=== PATIENT | male | born 1935 | race Caucasian/White ===

== ENCOUNTER 2021-08-09 22:04 | Inpatient (IN) | payer OTHER ==
[2021-08-09 22:14] VITALS: BMI 27.7
[2021-08-09 23:25] LABS: HEMATOCRIT 39.1 % (35.4-49); HEMOGLOBIN 12.9 GM/dl (11.7-16.9); MCH 30.4 pg (25.7-33.7); MCHC 33.1 g/dl (32.0-35.9); MEAN CELL VOLUME 91.8 fl (80-96); MEAN PLT VOLUME 10.3 fl (7.5-11.1); PLATELET COUNT 208 10^3/uL (134-434); RBC 4.26 M/mm3 (4.00-5.60); RDW 14.5 % (11.9-15.9); WHITE BLOOD COUNT 9.5 K/mm3 (4.0-10.8)
[2021-08-09 23:29] LABS: ALBUMIN 3.7 g/dl (3.4-5.0); BILIRUBIN,TOTAL 0.8 mg/dl (0.2-1); CREATININE 1.3 mg/dl (0.55-1.3); TOT PROT 6.9 g/dl (6.4-8.2)
[2021-08-09 23:42] LABS: PLATELET ESTIMATE ADEQUATE
[2021-08-09 23:51] LABS: CALCIUM 9.1 mg/dl (8.5-10)
[2021-08-10] MEDS ORDERED: SODIUM CHLORIDE 1,000 ML IV SCH (05:30)
[2021-08-10 08:52] LABS: BASO % 1.2 % (0-2.0); EOS % 1.7 % (0-4.5); HEMATOCRIT 37.2 % (35.4-49); HEMOGLOBIN 12.6 GM/dl (11.7-16.9); LYMPH % 23.4 % (8-40); MCH 30.7 pg (25.7-33.7); MCHC 33.9 g/dl (32.0-35.9); MEAN CELL VOLUME 90.7 fl (80-96); MEAN PLT VOLUME 9.7 fl (7.5-11.1); MONO % 8.2 % (3.8-10.2); NEUT % 65.5 % (42.8-82.8); PLATELET COUNT 202 10^3/uL (134-434); WHITE BLOOD COUNT 10.8 K/mm3 (4.0-10.8)
[2021-08-10 09:04] LABS: ALBUMIN 3.5 g/dl (3.4-5.0); BILIRUBIN,TOTAL 0.9 mg/dl (0.2-1); CALCIUM 8.9 mg/dl (8.5-10); CREATININE 1.1 mg/dl (0.55-1.3); MAGNESIUM 2.1 mg/dL (1.8-2.4); PHOSPHOROUS 3.3 mg/dl (2.5-4.9); TOT PROT 6.4 g/dl (6.4-8.2)
[2021-08-10] MEDS: LOSARTAN POTASSIUM 25 MG TABLET PO SCH (09:27)
[2021-08-10] MEDS: ASPIRIN COATED 81 MG TABLET.EC PO SCH (09:27)
[2021-08-10] MEDS: TAMSULOSIN HCL 0.4 MG CAP PO SCH ×3 (10:31→21:03)
[2021-08-10] MEDS: ENOXAPARIN NA (PORCINE) 40 MG/0.4 ML DISP.SYRIN SQ SCH (13:30)
[2021-08-10] MEDS: LATANOPROST 0.005% OPHTH SOLN 2.5ML BOTTLE OU SCH (21:03)
[2021-08-10] MEDS: ROSUVASTATIN CA 10 MG TABLET (FP) PO SCH (21:03)
[2021-08-11 08:11] LABS: MEAN CELL VOLUME 91.1 fl (80-96); WHITE BLOOD COUNT 8.7 K/mm3 (4.0-10.8)
[2021-08-11 08:18] LABS: ALBUMIN 3.1 g/dl (3.4-5.0); BILIRUBIN,TOTAL 0.7 mg/dl (0.2-1); CALCIUM 8.9 mg/dl (8.5-10); CREATININE 1.3 mg/dl (0.55-1.3); MAGNESIUM 1.9 mg/dL (1.8-2.4); PHOSPHOROUS 2.9 mg/dl (2.5-4.9); TOT PROT 5.8 g/dl (6.4-8.2)
[2021-08-11 08:41] LABS: HEMATOCRIT 36.8 % (35.4-49); HEMOGLOBIN 12.3 GM/dl (11.7-16.9); MCH 30.5 pg (25.7-33.7); MCHC 33.5 g/dl (32.0-35.9); MEAN PLT VOLUME 9.7 fl (7.5-11.1); PLATELET COUNT 184 10^3/uL (134-434); RBC 4.04 M/mm3 (4.00-5.60); RDW 14.1 % (11.9-15.9)
[2021-08-11] MEDS: LOSARTAN POTASSIUM 25 MG TABLET PO SCH (09:47)
[2021-08-11] MEDS: ASPIRIN COATED 81 MG TABLET.EC PO SCH (10:03)
[2021-08-11] MEDS: ENOXAPARIN NA (PORCINE) 40 MG/0.4 ML DISP.SYRIN SQ SCH (10:05)
[2021-08-11 11:05] LABS: ANISOCYTOSIS 1+; PLATELET ESTIMATE ADEQUATE
[2021-08-11] MEDS: LATANOPROST 0.005% OPHTH SOLN 2.5ML BOTTLE OU SCH (21:31)
[2021-08-11] MEDS: ROSUVASTATIN CA 10 MG TABLET (FP) PO SCH (21:31)
[2021-08-11] MEDS: TAMSULOSIN HCL 0.4 MG CAP PO SCH (21:31)
[2021-08-12] MEDS ORDERED: CLOPIDOGREL BISULFATE 75 MG TABLET (FP) PO SCH (10:00)
[2021-08-12 10:12] VITALS: BP 122/61; PULSE 62; TEMP 98.6
[2021-08-12] MEDS: ENOXAPARIN NA (PORCINE) 40 MG/0.4 ML DISP.SYRIN SQ SCH (10:14)
[2021-08-12] MEDS: ASPIRIN COATED 81 MG TABLET.EC PO SCH (10:15)
[2021-08-12] MEDS: LOSARTAN POTASSIUM 25 MG TABLET PO SCH (10:15)
== END 2021-08-12 11:05 | disposition home or self-care (01) | DRG 65 ==
LOC: FER 22:04 → FM/S 08-10 02:34 → INTOOBSV 08-10 02:34 → OBSVTOIN 08-11 15:56
PROVIDERS: ADMIT Internal Medicine; ATTEND Nurse Practitioner Acute Care
DX: I63.9 Cerebral infarction, unspecified (principal); G91.2 (Idiopathic) normal pressure hydrocephalus; I10 Essential (primary) hypertension; E78.5 Hyperlipidemia, unspecified; N40.0 Benign prostatic hyperplasia without lower urinary tract symptoms; M48.061 Spinal stenosis, lumbar region without neurogenic claudication; R26.81 Unsteadiness on feet; G62.9 Polyneuropathy, unspecified; I65.21 Occlusion and stenosis of right carotid artery
CPT/HCPCS: 36415; 70450-TC; 70551-TC; 71045-TC-FY; 80053; 81003; 81015; 82550; 82553; 83735; 84100; 84443; 84484; 85025; 93005; 93306-TC; 93880-TC; 93970-TC; 97116-GP; 97162-GP; 99285-25; C9803; G0378; U0003; U0005